=== PATIENT | male | born 1995 | race Hispanic/Latino ===

== ENCOUNTER 2017-03-23 17:20 | Emergency (ER) | payer MEDICAID, OTHER ==
[2017-03-23 17:37] VITALS: BMI 23.6
[2017-03-23 17:38] VITALS: BP 124/72; PULSE 90; RESP 18; TEMP 98.2; O2SAT 100
--- NOTE | 2017-03-23 18:02 | C.PDOC ---
Time Seen by Provider: 03/23/17 17:46 Chief Complaint (Nursing): Back Pain Past Medical History Vital Signs: Last Vital Signs Temp 98.2 F 03/23/17 17:37 Pulse 90 03/23/17 17:37 Resp 18 03/23/17 17:37 BP 124/72 03/23/17 17:37 Pulse Ox 100 03/23/17 17:37 - Medical History PMH: Anxiety, Arthritis, Asthma, Back Problems (Herniated and buldging discs), Fibromyalgia, Chronic Pain (Back and Neck) Denies: Chronic Kidney Disease - [facility] Procedures ESOPHAGOGASTRODUODENOSCOPY [EGD] W/CLOSED BIOPSY (02/11/15) Family History: States: Unknown Family Hx - Social History Hx Tobacco Use: No Hx Alcohol Use: No Hx Substance Use: No - Immunization History Hx Tetanus Toxoid Vaccination: No Hx Influenza Vaccination: No Hx Pneumococcal Vaccination: No ED Course And Treatment O2 Sat by Pulse Oximetry: 100 Disposition - Disposition Referrals: Diallo Hester MD [Non-Staff] - Disposition: HOME/ ROUTINE Disposition Time: 17:56 Condition: STABLE Additional Instructions: please follow up with your scheduled appointment. please also see specialist. return to er with worsening symptoms or concerns. Prescriptions: Cyclobenzaprine [Cyclobenzaprine HCl] 10 mg PO TID PRN #21 tab PRN Reason: Muscle Spasm Naproxen [Naprosyn] 500 mg PO BID PRN #14 tablet PRN Reason: Pain, Mild (1-3) Instructions: Back Pain (ED), Chronic Back Pain (ED) - Clinical Impression Clinical Impression: Chronic back pain
--- NOTE | 2017-03-23 18:06 | C.PDOC ---
History Of Present Illness 21 yr old male with PMHx of chronic back pain, presents to the ER with complaints of worsening back pain for the past few days. Patient reports he is due for surgery for his chronic back pain. MRI report shows multiple herniated disc in his thoracic spine area and is due to see a surgeon in 3 weeks. Patient states his back pain causes him to feel "hard to breath" butstates "nothing is wrong with his lungs". Prior records shows patient was seen previously for similar symptoms. Patient denies new trauma, chest pain, dysuria, incontinence, weakness or numbness. Time Seen by Provider: 03/23/17 17:46 Chief Complaint (Nursing): Back Pain History Per: Patient History/Exam Limitations: no limitations Onset/Duration Of Symptoms: Persistent Current Symptoms Are (Timing): Still Present Past Medical History Reviewed: Historical Data, Nursing Documentation, Vital Signs Vital Signs: Last Vital Signs Temp 98.2 F 03/23/17 17:37 Pulse 90 03/23/17 17:37 Resp 18 03/23/17 17:37 BP 124/72 03/23/17 17:37 Pulse Ox 100 03/23/17 18:10 - Medical History PMH: Anxiety, Arthritis, Asthma, Back Problems (Herniated and buldging discs), Fibromyalgia, Chronic Pain (Back and Neck) - [facility] Procedures ESOPHAGOGASTRODUODENOSCOPY [EGD] W/CLOSED BIOPSY (02/11/15) Family History: States: No Known Family Hx - Social History Hx Tobacco Use: No Hx Alcohol Use: No Hx Substance Use: No - Immunization History Hx Tetanus Toxoid Vaccination: No Hx Influenza Vaccination: No Hx Pneumococcal Vaccination: No Review Of Systems Except As Marked, All Systems Reviewed And Found Negative. Cardiovascular: Negative for: Chest Pain Genitourinary: Negative for: Dysuria, Incontinence Musculoskeletal: Positive for: Back Pain (Chronic back pain ) Neurological: Negative for: Weakness, Numbness Physical Exam - Physical Exam Appears: Non-toxic, No Acute Distress Skin: Warm, Dry, No Rash Head: Atraumatic, Normacephalic Oral Mucosa: Moist Chest: Symmetrical, No Tenderness Cardiovascular: Rhythm Regular, No Murmur Respiratory: Normal Breath Sounds, No Rales, No Rhonchi, No Stridor, No Wheezing Back: Normal Inspection, No CVA Tenderness Extremity: Normal ROM, No Swelling Neurological/Psych: Oriented x3, Normal Speech, Normal Motor ED Course And Treatment O2 Sat by Pulse Oximetry: 100 Progress Note: [facility] was reviewed which shows multiple tramadol prescription, last refill was 03/01/2017. Medical Decision Making Medical Decision Making: PLAN: * Flexeril PO * Toradol IM pt seen immediatley eloping after physician eval. Disposition - Disposition Referrals: Diallo Hester MD [Non-Staff] - Disposition: ELOPEMENT - ER ONLY Disposition Time: 17:56 Condition: STABLE Additional Instructions: please follow up with your scheduled appointment. please also see specialist. return to er with worsening symptoms or concerns. Prescriptions: Cyclobenzaprine [Cyclobenzaprine HCl] 10 mg PO TID PRN #21 tab PRN Reason: Muscle Spasm Naproxen [Naprosyn] 500 mg PO BID PRN #14 tablet PRN Reason: Pain, Mild (1-3) Instructions: Chronic Back Pain (ED), Back Pain (ED) - Clinical Impression Clinical Impression: Chronic back pain - Scribe Statement The provider has reviewed the documentation as recorded by the Sharonibpradeep Ritchie Provider Attestation: All medical record entries made by the Sharonibe were at my direction and personally dictated by me. I have reviewed the chart and agree that the record accurately reflects my personal performance of the history, physical exam, medical decision making, and the department course for this patient. I have also personally directed, reviewed, and agree with the discharge instructions and disposition.
== END 2017-03-23 17:46 | disposition left against medical advice (07) ==
LOC: C.ER 17:20
DX: G89.29 Other chronic pain (principal); M54.9 Dorsalgia, unspecified

== ENCOUNTER 2017-10-17 00:30 | Emergency (ER) | payer MEDICAID, OTHER ==
[2017-10-17 00:30] VITALS: BMI 23.6
[2017-10-17 00:42] VITALS: BP 154/82; PULSE 100; RESP 18; TEMP 98.2; O2SAT 100
--- NOTE | 2017-10-17 00:53 | C.PDOC ---
History Of Present Illness 22 yo male w/PMhx of migraine come in request refill on Rx: Fioricet. Pt reports , "usually my provider gives me medication every month on . She was away last week". Pt denies headache at present time, denies any other active physical complaints. Ambulate to Ed for evaluation, not in any apparent distress. [facility] review. pt receive on monthly basis Rx: Tramadol 50 mg, last rx was given . Time Seen by Provider: 10/17/17 00:44 Chief Complaint (Nursing): Med Refill History Per: Patient Past Medical History Reviewed: Historical Data, Nursing Documentation, Vital Signs Vital Signs: Last Vital Signs Temp 98.2 F 10/17/17 00:40 Pulse 100 H 10/17/17 00:40 Resp 18 10/17/17 00:40 BP 154/82 H 10/17/17 00:40 Pulse Ox 100 10/17/17 01:18 - Medical History PMH: Anxiety, Arthritis, Asthma, Back Problems (Herniated and buldging discs), Fibromyalgia, Chronic Pain (Back and Neck) Denies: Chronic Kidney Disease - [facility] Procedures ESOPHAGOGASTRODUODENOSCOPY [EGD] W/CLOSED BIOPSY (02/11/15) Family History: States: Unknown Family Hx - Social History Hx Tobacco Use: No Hx Alcohol Use: No Hx Substance Use: No - Immunization History Hx Tetanus Toxoid Vaccination: No Hx Influenza Vaccination: No Hx Pneumococcal Vaccination: No Review Of Systems Except As Marked, All Systems Reviewed And Found Negative. Constitutional: Negative for: Fever, Chills Eyes: Negative for: Vision Change ENT: Negative for: Throat Pain Cardiovascular: Negative for: Chest Pain, Palpitations, Edema, Light Headedness Respiratory: Negative for: Cough, Shortness of Breath, Wheezing Gastrointestinal: Negative for: Nausea, Vomiting, Abdominal Pain, Diarrhea Genitourinary: Negative for: Dysuria, Incontinence Musculoskeletal: Negative for: Neck Pain, Back Pain Skin: Negative for: Rash Neurological: Negative for: Weakness, Numbness, Altered Mental Status, Headache , Dizziness Physical Exam - Physical Exam Appears: Well, Non-toxic, No Acute Distress Skin: Normal Color, Warm, Dry, No Rash Head: Normacephalic Eye(s): bilateral: PERRL Nose: No Flaring Oral Mucosa: Moist, No Drooling Throat: No Mass Neck: Normal ROM, Trachea Midline, Supple Cardiovascular: Rhythm Regular, No Murmur, No JVD Respiratory: No Decreased Breath Sounds, No Accessory Muscle Use, No Stridor, No Wheezing Gastrointestinal/Abdominal: Soft, No Tenderness, No Distention, No Guarding Extremity: Normal ROM, No Deformity, No Swelling Neurological/Psych: Oriented x3, Normal Speech ED Course And Treatment O2 Sat by Pulse Oximetry: 100 Pulse Ox Interpretation: Normal Progress Note: Pt advised and ref. to f/U with PMd, Pain management and neurology for further eavluation and rx refill as need. return if any new changes. Disposition Counseled Patient/Family Regarding: Diagnosis, Need For Followup - Disposition Referrals: Sulma Dumont MD [Primary Care Provider] - Disposition: HOME/ ROUTINE Disposition Time: 00:51 Condition: STABLE Additional Instructions: TAKE MEDICATION PRESCRIBED FOLLOW UP WITH PMD, NEUROLOGY NEED FOR FURTHER EVALUATION AND MEDICAL REFILL. Prescriptions: Acetaminophen/Butalbital/Caf [Fioricet] 1 tab PO TID PRN #10 tab PRN Reason: Headache Instructions: Migraine Headache (ED), Medicine Refill (ED) Forms: [employer] (Kenyan) - Clinical Impression Clinical Impression: Medication refill, Migraine
== END 2017-10-17 01:29 | disposition home or self-care (01) ==
LOC: SUPCPDRO 00:30 → C.ER 00:30
DX: Z76.0 Encounter for issue of repeat prescription (principal); G43.909 Migraine, unspecified, not intractable, without status migrainosus

== ENCOUNTER 2018-02-17 22:01 | Emergency (ER) | payer OTHER ==
[2018-02-17 22:12] VITALS: BMI 25.4
--- NOTE | 2018-02-17 22:18 | C.PDOC ---
History Of Present Illness 22 year old male is brought to the ED by ambulance alongside [facility] escort for psychiatric evaluation. Patient reportedly verbalized suicidal ideation earlier today. Patient has history of psychiatric illness but is not currently on any psychiatric medications. Patient denies homicidal ideation and has no physical complaints at this time. Time Seen by Provider: 02/17/18 22:15 Chief Complaint (Nursing): Psychiatric Evaluation History Per: Patient, EMS History/Exam Limitations: no limitations Onset/Duration Of Symptoms: Hrs Current Symptoms Are (Timing): Still Present Suicide/Self Injury Attempted (Context): None Associated Symptoms: Suicidal Thoughts Involuntary Hold By: None Recent travel outside of the [place]: No Additional History Per: Patient, EMS, Law Enforcement Past Medical History Reviewed: Historical Data, Nursing Documentation, Vital Signs Vital Signs: Last Vital Signs Temp 97.9 F 02/17/18 22:13 Pulse 89 02/17/18 22:13 Resp 18 02/17/18 22:13 BP 112/74 02/17/18 22:13 Pulse Ox 99 02/18/18 00:15 - Medical History PMH: Anxiety, Arthritis, Asthma, Back Problems (Herniated and buldging discs), Fibromyalgia, Chronic Pain (Back and Neck) Denies: Chronic Kidney Disease Surgical History: No Surg Hx - [facility] Procedures ESOPHAGOGASTRODUODENOSCOPY [EGD] W/CLOSED BIOPSY (02/11/15) Family History: States: Unknown Family Hx - Social History Hx Tobacco Use: No Hx Alcohol Use: No Hx Substance Use: No - Immunization History Hx Tetanus Toxoid Vaccination: No Hx Influenza Vaccination: No Hx Pneumococcal Vaccination: No Review Of Systems Psych: Positive for: Suicidal ideation Physical Exam - Physical Exam Appears: Non-toxic, No Acute Distress, Other (disheveled, thin ) Skin: Normal Color, Warm, Dry Head: Atraumatic, Normacephalic Eye(s): bilateral: Normal Inspection Oral Mucosa: Moist Neck: Supple Chest: Symmetrical, No Deformity, No Tenderness Cardiovascular: Rhythm Regular, No Murmur Respiratory: Normal Breath Sounds, No Rales, No Rhonchi, No Wheezing Extremity: Normal ROM, Capillary Refill (less than 2 seconds ) Neurological/Psych: Oriented x3, Normal Speech, Normal Cognition ED Course And Treatment - Laboratory Results Result Diagrams: 02/17/18 22:44 02/17/18 22:44 Lab Interpretation: Abnormal (tox + abdelrahman (fioricet) narc (tramadol)) O2 Sat by Pulse Oximetry: 99 (on RA) Pulse Ox Interpretation: Normal Progress Note: Bloodwork and UA ordered and reviewed. Patient placed on 1:1 observation. Reevaluation Time: 00:42 Reassessment Condition: Unchanged - Physician Consult Information Outcome Of Conversation: d/w Crisis, ok to d/c home with opt flu. Medical Decision Making Medical Decision Making: fioricet and Tramadol abuse Depression Disposition Doctor Will See Patient In The: Office Counseled Patient/Family Regarding: Studies Performed, Diagnosis - Disposition Disposition: HOME/ ROUTINE Disposition Time: 00:43 Condition: GOOD Forms: [employer] (Urdu) - Clinical Impression Clinical Impression: Depression, Opiate abuse, continuous - Scribe Statement The provider has reviewed the documentation as recorded by the Scribe (Arleth Sahni) Provider Attestation: All medical record entries made by the Scribe were at my direction and personally dictated by me. I have reviewed the chart and agree that the record accurately reflects my personal performance of the history, physical exam, medical decision making, and the department course for this patient. I have also personally directed, reviewed, and agree with the discharge instructions and disposition.
[2018-02-17 22:19] VITALS: RESP 18
[2018-02-17 22:53] LABS: BASO # 0.2 K/uL (0.0-0.2); BASO % 2.8 % (0.0-2.0); EOS # 0.5 K/uL (0.0-0.7); EOS % 9.5 % (0.0-4.0); HEMOGLOBIN 14.7 g/dL (12.0-18.0); LYMPH # 1.8 K/uL (1.0-4.3); LYMPH % 32.5 % (20.0-40.0); MEAN CELL VOLUME 89.5 fL (80.0-94.0); MEAN CORPUSCULAR HEMOGLOBIN 30.8 pg (27.0-31.0); MEAN CORPUSCULAR HGB CONC 34.4 g/dL (33.0-37.0); MEAN PLATELET VOLUME 10.7 fL (7.2-11.7); MONO # 0.5 K/uL (0.0-0.8); MONO % 9.3 % (0.0-10.0); NEUT # 2.6 K/uL (1.8-7.0); NEUT % 45.9 % (50.0-75.0); RBC 4.78 Mil/uL (4.40-5.90); RED CELL DISTRIBUTION WIDTH 13.2 % (11.5-14.5); WHITE BLOOD COUNT 5.6 K/uL (4.8-10.8)
[2018-02-17 23:00] LABS: URINE BACTERIA RARE (<OCC); URINE BILIRUBIN NEGATIVE (NEGATIVE); URINE BLOOD NEGATIVE (NEGATIVE); URINE CLARITY Clear (Clear); URINE COLOR Yellow (YELLOW); URINE GLUCOSE (UA) NORMAL (Normal); URINE LEUKOCYTE ESTERASE NEG Leu/uL (Negative); URINE PROTEIN NEGATIVE (NEGATIVE); URINE UROBILINOGEN NORMAL mg/dL (0.2-1.0)
[2018-02-17 23:11] LABS: ALB/GLOB RATIO 1.6 (1.0-2.1); ALBUMIN 4.8 g/dL (3.5-5.0); ALT/SGPT 22 U/L (21-72); AST/SGOT 26 U/L (17-59); BLOOD UREA NITROGEN 13 mg/dL (9-20); CALCIUM 9.6 mg/dl (8.6-10.4); GFR AFRICAN-AMERICAN > 60; GFR NON-AFRICAN AMERICAN > 60
[2018-02-17 23:15] LABS: BENZODIAZEPINES, UR NEGATIVE (NEGATIVE); PHENCYCLIDINE, UR NEGATIVE (NEGATIVE)
[2018-02-17 23:19] LABS: BARBITURATES, UR POSITIVE (NEGATIVE); OPIATES, UR POSITIVE (NEGATIVE)
[2018-02-18 00:59] VITALS: BP 96/60; PULSE 76; TEMP 98.1; O2SAT 98
== END 2018-02-18 01:10 | disposition home or self-care (01) ==
LOC: C.ER 22:01
DX: F32.9 Major depressive disorder, single episode, unspecified (principal); F11.10 Opioid abuse, uncomplicated; M79.7 Fibromyalgia

== ENCOUNTER 2018-08-21 11:40 | Emergency (ER) | payer MEDICAID, OTHER ==
[2018-08-21 11:41] VITALS: BMI 25.4
[2018-08-21 11:52] VITALS: BP 166/79; PULSE 112; RESP 17; TEMP 98.4; O2SAT 100
--- NOTE | 2018-08-21 12:04 | C.PDOC ---
History Of Present Illness 23 y/o male presents to the ED requesting refill for Fioricet. Patient states he was taking Fioricet four times per day for headaches. He denies any active physical complaints other than mild headache, consistent with prior episodes. He denies any nausea, vomiting, photophobia, visual loss, dizziness, or other complaints. Time Seen by Provider: 08/21/18 11:54 Chief Complaint (Nursing): Med Refill History Per: Patient History/Exam Limitations: no limitations Onset/Duration Of Symptoms: Days Current Symptoms Are (Timing): Still Present Past Medical History Reviewed: Historical Data, Nursing Documentation, Vital Signs Vital Signs: Last Vital Signs Temp 98.4 F 08/21/18 11:47 Pulse 112 H 08/21/18 11:47 Resp 17 08/21/18 11:47 BP 166/79 H 08/21/18 11:47 Pulse Ox 100 08/21/18 11:47 - Medical History PMH: Anxiety, Arthritis, Asthma, Back Problems (Herniated and buldging discs), Fibromyalgia, Chronic Pain (Back and Neck) Denies: Chronic Kidney Disease - [facility] Procedures ESOPHAGOGASTRODUODENOSCOPY [EGD] W/CLOSED BIOPSY (02/11/15) Family History: States: Unknown Family Hx - Social History Hx Tobacco Use: No Hx Alcohol Use: No Hx Substance Use: No - Immunization History Hx Tetanus Toxoid Vaccination: No Hx Influenza Vaccination: No Hx Pneumococcal Vaccination: No Review Of Systems Constitutional: Negative for: Fever, Chills Eyes: Negative for: Vision Change Cardiovascular: Negative for: Chest Pain Respiratory: Negative for: Shortness of Breath Gastrointestinal: Negative for: Nausea, Vomiting Neurological: Positive for: Headache. Negative for: Weakness, Numbness, Dizziness Physical Exam - Physical Exam Appears: Well, Non-toxic, No Acute Distress Skin: Warm, Dry Head: Atraumatic, Normacephalic Eye(s): bilateral: Normal Inspection, PERRL, EOMI Nose: Normal, No Discharge Oral Mucosa: Moist Neck: Normal ROM, No Midline Cervical Tenderness, No Paracervical Tenderness, Supple Chest: Symmetrical Respiratory: No Accessory Muscle Use, Other (no respiratory distress) Extremity: Bilateral: Atraumatic, Normal Color And Temperature Neurological/Psych: Oriented x3, Normal Speech, Normal Cranial Nerves, Other (No focal deficits) Gait: Steady ED Course And Treatment O2 Sat by Pulse Oximetry: 100 (RA) Pulse Ox Interpretation: Normal Progress Note: Patient advised that med refills cannot be routinely provided from the ED, and he needs to follow up with PMD or neurologist for further management. Will d/c home with rx for Fioricet TID, 12 tabs. Disposition - Disposition Disposition: HOME/ ROUTINE Disposition Time: 12:08 Condition: STABLE Additional Instructions: Follow up withb your PMD within 1-2 days. Return to ED if feel worse. 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 - Scribe Statement The provider has reviewed the documentation as recorded by the Scribpradeep Cat All medical record entries made by the Scribe were at my direction and personally dictated by me. I have reviewed the chart and agree that the record accurately reflects my personal performance of the history, physical exam, medical decision making, and the department course for this patient. I have also personally directed, reviewed, and agree with the discharge instructions and disposition.
== END 2018-08-21 12:15 | disposition home or self-care (01) ==
LOC: C.ER 11:40
DX: Z76.0 Encounter for issue of repeat prescription (principal)

== ENCOUNTER 2018-11-13 21:11 | Emergency (ER) | payer SELFPAY ==
[2018-11-13 21:12] VITALS: BMI 25.4
--- NOTE | 2018-11-13 21:26 | C.PDOC ---
History Of Present Illness 23 year old male presents to the ED for evaluation of depression. Patient reports that he has been feeling depressed lately and today had thoughts of jumping in front of a speeding car. Patient denies HI, hallucinations, injury, fall, trauma. Time Seen by Provider: 11/13/18 21:26 Chief Complaint (Nursing): Psychiatric Evaluation History Per: Patient History/Exam Limitations: no limitations Onset/Duration Of Symptoms: Days Current Symptoms Are (Timing): Still Present Suicide/Self Injury Attempted (Context): None Associated Symptoms: Depression, Suicidal Thoughts, Suicidal Plan Recent travel outside of the [place]: No Additional History Per: Patient Past Medical History Reviewed: Historical Data, Nursing Documentation, Vital Signs Vital Signs: Last Vital Signs Temp 97.8 F 11/13/18 21:15 Pulse 91 H 11/13/18 21:15 Resp 16 11/13/18 21:15 BP 101/60 11/13/18 21:15 Pulse Ox 98 11/13/18 21:15 - Medical History PMH: Anxiety, Arthritis, Asthma, Back Problems (Herniated and buldging discs), Depression, Fibromyalgia, Chronic Pain (Back and Neck) Denies: Chronic Kidney Disease Surgical History: No Surg Hx - [facility] Procedures ESOPHAGOGASTRODUODENOSCOPY [EGD] W/CLOSED BIOPSY (02/11/15) Family History: States: Unknown Family Hx - Social History Hx Tobacco Use: No Hx Alcohol Use: No Hx Substance Use: No - Immunization History Hx Tetanus Toxoid Vaccination: No Hx Influenza Vaccination: No Hx Pneumococcal Vaccination: No Review Of Systems Constitutional: Negative for: Fever, Chills Cardiovascular: Negative for: Chest Pain Respiratory: Negative for: Shortness of Breath Gastrointestinal: Negative for: Nausea, Vomiting, Abdominal Pain Skin: Negative for: Rash Psych: Positive for: Depression, Suicidal ideation Physical Exam - Physical Exam Appears: Non-toxic, No Acute Distress Skin: Warm, Dry Head: Normacephalic Eye(s): bilateral: Normal Inspection Neck: Supple Chest: Symmetrical Cardiovascular: Rhythm Regular Respiratory: No Rales, No Rhonchi, No Wheezing Gastrointestinal/Abdominal: Soft, No Tenderness, No Guarding, No Rebound Extremity: Bilateral: Atraumatic, Normal Color And Temperature, Normal ROM Neurological/Psych: Oriented x3, Normal Speech, Normal Cognition Gait: Steady ED Course And Treatment - Laboratory Results Result Diagrams: 11/13/18 21:37 11/13/18 21:37 O2 Sat by Pulse Oximetry: 98 (ON RA) Pulse Ox Interpretation: Normal Progress Note: Plan: - Labs. - UA. - Crisis. Pt was cleared for discharge by dr Shipman. Pt to follow up with [facility] Disposition Counseled Patient/Family Regarding: Studies Performed, Diagnosis, Need For Foll owup - Disposition Disposition: HOME/ ROUTINE Disposition Time: 21:26 Condition: FAIR Additional Instructions: Please follow up with [facility] Instructions: Depression, Adult (DC) Forms: [employer] (Khmer) - Clinical Impression Clinical Impression: Major depressive disorder, recurrent - Scribe Statement The provider has reviewed the documentation as recorded by the Scribe Ty Key All medical record entries made by the Scribe were at my direction and personally dictated by me. I have reviewed the chart and agree that the record accurately reflects my personal performance of the history, physical exam, medical decision making, and the department course for this patient. I have also personally directed, reviewed, and agree with the discharge instructions and disposition.
[2018-11-13 21:44] LABS: BASO # 0.1 K/uL (0.0-0.2); EOS # 0.5 K/uL (0.0-0.7); EOS % 6.8 % (0.0-4.0); HEMOGLOBIN 13.8 g/dL (12.0-18.0); LYMPH # 1.9 K/uL (1.0-4.3); LYMPH % 28.8 % (20.0-40.0); MEAN CELL VOLUME 90.1 fL (80.0-94.0); MEAN CORPUSCULAR HEMOGLOBIN 29.9 pg (27.0-31.0); MEAN CORPUSCULAR HGB CONC 33.2 g/dL (33.0-37.0); MEAN PLATELET VOLUME 10.8 fL (7.2-11.7); MONO # 0.4 K/uL (0.0-0.8); NEUT # 3.8 K/uL (1.8-7.0); NEUT % 57.4 % (50.0-75.0); NRBC % 0.1 % (0.0-2.0); RBC 4.62 Mil/uL (4.40-5.90); RED CELL DISTRIBUTION WIDTH 13.2 % (11.5-14.5); WHITE BLOOD COUNT 6.6 K/uL (4.8-10.8)
[2018-11-13 21:53] LABS: URINE BILIRUBIN NEGATIVE (NEGATIVE); URINE BLOOD NEGATIVE (NEGATIVE); URINE CLARITY Clear (Clear); URINE COLOR Yellow (YELLOW); URINE GLUCOSE (UA) NORMAL (Normal); URINE LEUKOCYTE ESTERASE NEG Leu/uL (Negative); URINE PROTEIN NEGATIVE (NEGATIVE); URINE UROBILINOGEN NORMAL mg/dL (0.2-1.0)
[2018-11-13 21:57] LABS: ALB/GLOB RATIO 1.9 (1.0-2.1); ALBUMIN 4.5 g/dL (3.5-5.0); ALT/SGPT 23 U/L (21-72); AST/SGOT 23 U/L (17-59); BLOOD UREA NITROGEN 9 mg/dL (9-20); CALCIUM 8.9 mg/dl (8.6-10.4); GFR NON-AFRICAN AMERICAN > 60
[2018-11-13 22:01] LABS: BARBITURATES, UR POSITIVE (NEGATIVE); BENZODIAZEPINES, UR NEGATIVE (NEGATIVE); OPIATES, UR NEGATIVE (NEGATIVE); PHENCYCLIDINE, UR NEGATIVE (NEGATIVE)
[2018-11-14 01:32] VITALS: RESP 18
[2018-11-14 03:51] VITALS: BP 108/72; PULSE 61; TEMP 98.3
[2018-11-14 04:15] VITALS: O2SAT 98
== END 2018-11-14 04:40 | disposition home or self-care (01) ==
LOC: C.ER 21:11
DX: F32.9 Major depressive disorder, single episode, unspecified (principal)
CPT/HCPCS: 80053; 81001; 83735; 84100; 85025; 99285; G0480

== ENCOUNTER 2018-12-01 23:49 | Emergency (ER) | payer MEDICAID ==
[2018-12-01 23:51] VITALS: BMI 25.4
[2018-12-02 00:21] VITALS: BP 120/77; PULSE 104; RESP 20; TEMP 98.7; O2SAT 96
--- NOTE | 2018-12-02 01:01 | C.PDOC ---
History Of Present Illness this patient request medication refill of fiorcet. he states he has chronic headaches and he ran out yesterday. he has a primary that normally sees him but he is not scheduled until january. he denies having a severe headache at this time. Time Seen by Provider: 12/02/18 00:57 Chief Complaint (Nursing): Headache History Per: Patient History/Exam Limitations: no limitations Current Symptoms Are (Timing): Gone Severity: None Past Medical History Vital Signs: Last Vital Signs Temp 98.7 F 12/02/18 00:17 Pulse 104 H 12/02/18 00:17 Resp 20 12/02/18 00:17 BP 120/77 12/02/18 00:17 Pulse Ox 96 12/02/18 00:17 - Medical History PMH: Anxiety, Arthritis, Asthma, Back Problems (Herniated and buldging discs), Depression, Fibromyalgia, Migraine, Chronic Pain (Back and Neck) Denies: Diabetes, Hepatitis, HIV, HTN, Chronic Kidney Disease, Seizures, Sex ually Transmitted Disease - [facility] Procedures ESOPHAGOGASTRODUODENOSCOPY [EGD] W/CLOSED BIOPSY (02/11/15) Family History: States: Unknown Family Hx - Social History Hx Tobacco Use: No Hx Alcohol Use: No Hx Substance Use: No - Immunization History Hx Tetanus Toxoid Vaccination: No Hx Influenza Vaccination: No Hx Pneumococcal Vaccination: No Review Of Systems Constitutional: Negative for: Fever, Chills, Weakness Gastrointestinal: Negative for: Nausea, Vomiting Neurological: Negative for: Weakness, Numbness, Confusion, Seizures Physical Exam - Physical Exam Appears: Well, Non-toxic Skin: Normal Color, Warm Head: Atraumatic, Normacephalic Eye(s): bilateral: Normal Inspection, PERRL, EOMI Neck: Supple Respiratory: No Accessory Muscle Use Extremity: Normal ROM Extremity: Bilateral: Atraumatic Neurological/Psych: Oriented x3, Normal Speech, Normal Cognition, Normal Cranial Nerves ED Course And Treatment O2 Sat by Pulse Oximetry: 96 Disposition Counseled Patient/Family Regarding: Diagnosis, Need For Followup, Rx Given - Disposition Disposition: HOME/ ROUTINE Disposition Time: : Condition: STABLE Prescriptions: Acetaminophen/Butalbital/Caf [Fioricet] 1 tab PO TID #30 tab Instructions: Where to Get Help Paying for Your Prescriptions Forms: [employer] (Yakut), General Discharge Instructions - Clinical Impression Clinical Impression: Medication refill
== END 2018-12-02 01:16 | disposition home or self-care (01) ==
LOC: C.ER 23:49
DX: Z76.0 Encounter for issue of repeat prescription (principal)

== ENCOUNTER 2018-12-05 19:03 | Emergency (ER) | payer MEDICAID ==
[2018-12-05 19:03] VITALS: BMI 25.4
[2018-12-05 19:21] VITALS: BP 124/82; PULSE 113; RESP 20; TEMP 98.2; O2SAT 98
--- NOTE | 2018-12-05 20:21 | C.PDOC ---
History Of Present Illness 23 y/o male with a PMHx of chronic back pain, scoliosis, and pinched nerve presents to the ED for evaluation of worsening back pain. Patient states he lost his insurance 2 months ago and is pending re-instatement on Tuesday. He has plans to see PMD on Tuesday but is requesting a refill of his Tramadol. Pain is described as sharp, rated 9/10, unchanged from prior episodes of chronic back pain. He otherwise denies any trauma or injury, weakness, paresthesias, fevers, chills, nausea, vomiting, or urinary symptoms. Time Seen by Provider: 12/05/18 20:15 Chief Complaint (Nursing): Med Refill History Per: Patient History/Exam Limitations: no limitations Onset/Duration Of Symptoms: Days Current Symptoms Are (Timing): Still Present Past Medical History Reviewed: Historical Data, Nursing Documentation, Vital Signs Vital Signs: Last Vital Signs Temp 98.2 F 12/05/18 19:20 Pulse 113 H 12/05/18 19:20 Resp 20 12/05/18 19:20 BP 124/82 12/05/18 19:20 Pulse Ox 98 12/05/18 19:20 - Medical History PMH: Anxiety, Arthritis, Asthma, Back Problems (Herniated and buldging discs), Depression, Fibromyalgia, Migraine, Chronic Pain (Back and Neck) Denies: Diabetes, Hepatitis, HIV, HTN, Chronic Kidney Disease, Seizures, Sexually Transmitted Disease - [facility] Procedures ESOPHAGOGASTRODUODENOSCOPY [EGD] W/CLOSED BIOPSY (02/11/15) Family History: States: Unknown Family Hx - Social History Hx Tobacco Use: No Hx Alcohol Use: No Hx Substance Use: No - Immunization History Hx Tetanus Toxoid Vaccination: No Hx Influenza Vaccination: No Hx Pneumococcal Vaccination: No Review Of Systems Constitutional: Negative for: Fever, Chills Cardiovascular: Negative for: Chest Pain Respiratory: Negative for: Shortness of Breath Gastrointestinal: Negative for: Nausea, Vomiting, Abdominal Pain Genitourinary: Negative for: Dysuria, Incontinence, Hematuria Musculoskeletal: Positive for: Back Pain Neurological: Negative for: Weakness, Numbness, Incoordination Physical Exam - Physical Exam Appears: Non-toxic, No Acute Distress Skin: Warm, Dry Head: Atraumatic, Normacephalic Eye(s): bilateral: Normal Inspection, PERRL, EOMI Neck: Normal ROM Chest: Symmetrical Cardiovascular: Rhythm Regular Respiratory: Normal Breath Sounds, No Accessory Muscle Use Back: Vertebral Tenderness (cervical down to lumbar spine) Extremity: Bilateral: Atraumatic, Normal ROM (x 4) Pulses: Left Dorsalis Pedis: Normal, Right Dorsalis Pedis: Normal Neurological/Psych: Oriented x3, Normal Speech Gait: Steady ED Course And Treatment O2 Sat by Pulse Oximetry: 98 (RA) Pulse Ox Interpretation: Normal Medical Decision Making Medical Decision Making: Impression: Chronic back pain Plan: - 600 mg PO Motrin Patient noted to be resting comfortably in no acute distress during ED OBS. Plan is to discharge pt home with rx for motrin 600mg. Upon discharge, patient had already left the ED. Patient left without receiving discharge paperwork and prescription. Disposition Counseled Patient/Family Regarding: Diagnosis, Need For Followup, Rx Given - Disposition Referrals: Tyrone Villa MD [Medical Doctor] - Disposition: HOME/ ROUTINE Disposition Time: 21:08 Condition: STABLE Additional Instructions: follow up with Dr. Mari for pain management return to ED if symptoms worsen Prescriptions: Ibuprofen [Motrin] 600 mg PO Q8 #30 tab Instructions: Chronic Pain (DC) Forms: [employer] (Swazi) - Clinical Impression Clinical Impression: Chronic pain, Back pain - PA / STOCK DRIER TENDER / Resident Statement MD/DO has reviewed & agrees with the documentation as recorded. - Scribe Statement The provider has reviewed the documentation as recorded by the Scribe Glendy Cat All medical record entries made by the Scribe were at my direction and personally dictated by me. I have reviewed the chart and agree that the record accurately reflects my personal performance of the history, physical exam, medical decision making, and the department course for this patient. I have also personally directed, reviewed, and agree with the discharge instructions and disposition.
== END 2018-12-05 21:20 | disposition home or self-care (01) ==
LOC: C.ER 19:03
DX: M54.9 Dorsalgia, unspecified (principal); G89.29 Other chronic pain

== ENCOUNTER 2018-12-11 22:36 | Emergency (ER) | payer SELFPAY ==
[2018-12-11 22:36] VITALS: BMI 25.4
[2018-12-11 22:49] VITALS: BP 143/78; PULSE 140; RESP 18; TEMP 98.4; O2SAT 99
--- NOTE | 2018-12-11 23:26 | C.PDOC ---
History Of Present Illness 23 year old male with Hx of chronic migraine, usually takes fioricet, evaluated in the ER before for migraine, presents requesting a refill of his fioricet. Patient states his insurance lapsed but he has an appointment with Dr. Vilal for pain management and would like a refill until then. No other complaints at this time. Time Seen by Provider: 12/11/18 22:47 Chief Complaint (Nursing): Med Refill History Per: Patient History/Exam Limitations: no limitations Onset/Duration Of Symptoms: Hrs Recent travel outside of the [place]: No Past Medical History Reviewed: Historical Data, Nursing Documentation, Vital Signs Vital Signs: Last Vital Signs Temp 98.4 F 12/11/18 22:45 Pulse 140 H 12/11/18 22:45 Resp 18 12/11/18 22:45 BP 143/78 12/11/18 22:45 Pulse Ox 99 12/11/18 22:45 - Medical History PMH: Anxiety, Arthritis, Asthma, Back Problems (Herniated and buldging discs), Depression, Fibromyalgia, Migraine, Chronic Pain (Back and Neck) Denies: Diabetes, Hepatitis, HIV, HTN, Chronic Kidney Disease, Seizures, Se xually Transmitted Disease - [facility] Procedures ESOPHAGOGASTRODUODENOSCOPY [EGD] W/CLOSED BIOPSY (02/11/15) Family History: States: Unknown Family Hx - Social History Hx Tobacco Use: No Hx Alcohol Use: No Hx Substance Use: No - Immunization History Hx Tetanus Toxoid Vaccination: No Hx Influenza Vaccination: No Hx Pneumococcal Vaccination: No Review Of Systems Constitutional: Negative for: Fever, Chills Cardiovascular: Negative for: Chest Pain, Palpitations Respiratory: Negative for: Cough, Shortness of Breath Gastrointestinal: Negative for: Nausea, Vomiting Neurological: Negative for: Weakness, Numbness Physical Exam - Physical Exam Appears: Well, Non-toxic, No Acute Distress Skin: Normal Color, Warm, No Rash Head: Atraumatic, Normacephalic Oral Mucosa: Moist Neck: Normal ROM, Supple Chest: Symmetrical Respiratory: No Accessory Muscle Use, Other (Normal inspiratory effort) Gastrointestinal/Abdominal: Soft, No Distention Neurological/Psych: Oriented x3, Normal Speech, Normal Cranial Nerves (Grossly intact) Gait: Steady ED Course And Treatment O2 Sat by Pulse Oximetry: 99 (Room air) Pulse Ox Interpretation: Normal Disposition Counseled Patient/Family Regarding: Diagnosis, Need For Followup, Rx Given - Disposition Disposition: HOME/ ROUTINE Disposition Time: 23:21 Condition: STABLE Prescriptions: Acetaminophen/Butalbital/Caf [Fioricet] 1 tab PO TID #21 tab Forms: [facility] (Norwegian), General Discharge Instructions - Clinical Impression Clinical Impression: Medication refill - PA / CEMENT SACK BREAKER / Resident Statement MD/DO has reviewed & agrees with the documentation as recorded. - Scribe Statement The provider has reviewed the documentation as recorded by the Scribpradeep Teixeira All medical record entries made by the Sharonibpradeep were at my direction and persona lly dictated by me. I have reviewed the chart and agree that the record accurately reflects my personal performance of the history, physical exam, medical decision making, and the department course for this patient. I have also personally directed, reviewed, and agree with the discharge instructions and disposition.
== END 2018-12-11 23:30 | disposition home or self-care (01) ==
LOC: C.ER 22:36
DX: Z76.0 Encounter for issue of repeat prescription (principal); M79.7 Fibromyalgia; F32.9 Major depressive disorder, single episode, unspecified

== ENCOUNTER 2018-12-29 14:45 | Emergency (ER) | payer MEDICAID ==
[2018-12-29 14:45] VITALS: BMI 25.4
[2018-12-29 14:51] VITALS: BP 117/77; PULSE 83; RESP 18; TEMP 98.1; O2SAT 100
--- NOTE | 2018-12-29 15:22 | C.PDOC ---
History Of Present Illness 23 year old male presents to ED requesting fiorcet refill. Patient has no physical complaints. Time Seen by Provider: 12/29/18 14:52 Chief Complaint (Nursing): Med Refill History Per: Patient History/Exam Limitations: no limitations Current Symptoms Are (Timing): Gone Pain Scale Rating Of: 0 Recent travel outside of the [place]: No Past Medical History Reviewed: Historical Data, Nursing Documentation, Vital Signs Vital Signs: Last Vital Signs Temp 98.1 F 12/29/18 14:49 Pulse 83 12/29/18 14:49 Resp 18 12/29/18 14:49 BP 117/77 12/29/18 14:49 Pulse Ox 100 12/29/18 14:49 - Medical History PMH: Anxiety, Arthritis, Asthma, Back Problems (Herniated and buldging discs), Depression, Fibromyalgia, Migraine, Chronic Pain (Back and Neck) Denies: Diabetes, Hepatitis, HIV, HTN, Chronic Kidney Disease, Seizures, Sexually Transmitted Disease Surgical History: No Surg Hx - [facility] Procedures ESOPHAGOGASTRODUODENOSCOPY [EGD] W/CLOSED BIOPSY (02/11/15) Family History: States: Unknown Family Hx - Social History Hx Tobacco Use: No Hx Alcohol Use: No Hx Substance Use: No - Immunization History Hx Tetanus Toxoid Vaccination: No Hx Influenza Vaccination: No Hx Pneumococcal Vaccination: No Review Of Systems Except As Marked, All Systems Reviewed And Found Negative. Constitutional: Negative for: Fever, Chills, Weakness Cardiovascular: Negative for: Chest Pain Respiratory: Negative for: Cough, Shortness of Breath Gastrointestinal: Negative for: Nausea, Vomiting, Abdominal Pain Neurological: Negative for: Weakness, Numbness, Dizziness Physical Exam - Physical Exam Appears: Well, Non-toxic, No Acute Distress Skin: Normal Color, Warm, Dry, No Rash Head: Atraumatic, Normacephalic Eye(s): bilateral: Normal Inspection Oral Mucosa: Moist Throat: No Erythema, No Exudate Neck: Normal ROM, Supple Chest: Symmetrical, No Deformity Cardiovascular: Rhythm Regular, No Friction Rub, No Murmur Respiratory: No Accessory Muscle Use, No Rales, No Rhonchi, No Wheezing Gastrointestinal/Abdominal: Soft, No Tenderness Back: Normal Inspection, No CVA Tenderness Extremity: Normal ROM, No Swelling Neurological/Psych: Oriented x3, Normal Speech, Normal Cognition, Normal Motor Gait: Steady ED Course And Treatment O2 Sat by Pulse Oximetry: 100 (in RA) Pulse Ox Interpretation: Normal Medical Decision Making Medical Decision Making: Plan: Patient given prescription for fiorcet. Patient discharged home. Disposition - Disposition Referrals: Cb Batista MD [Staff Provider] - Tyrone Villa MD [Medical Doctor] - Disposition: HOME/ ROUTINE Disposition Time: 15:20 Condition: GOOD Additional Instructions: Follow up with the medical doctor within 1-2 days. Return if worsened. Prescriptions: Acetaminophen/Butalbital/Caf [Fioricet] 1 tab PO TID PRN #20 tab PRN Reason: Headache Instructions: Headache, Adult Forms: [employer] (Albanian) - Clinical Impression Clinical Impression: Medication refill - PA / ENGINEER FIRST ASSISTANT / Resident Statement MD/DO has reviewed & agrees with the documentation as recorded. (Eunice Baltazar) - Scribe Statement The provider has reviewed the documentation as recorded by the Scribe (Eunice Baltazar) All medical record entries made by the Scribe were at my direction and personally dictated by me. I have reviewed the chart and agree that the record accurately reflects my personal performance of the history, physical exam, medical decision making, and the department course for this patient. I have also personally directed, reviewed, and agree with the discharge instructions and disposition.
== END 2018-12-29 15:31 | disposition home or self-care (01) ==
LOC: C.ER 14:45
DX: Z76.0 Encounter for issue of repeat prescription (principal)

== ENCOUNTER 2019-01-10 02:19 | Emergency (ER) | payer MEDICAID, OTHER ==
[2019-01-10 02:19] VITALS: BMI 25.4
[2019-01-10 02:29] VITALS: BP 149/77; PULSE 104; RESP 16; TEMP 98.6; O2SAT 98
--- NOTE | 2019-01-10 02:39 | C.PDOC ---
Time Seen by Provider: 01/10/19 02:35 Chief Complaint (Nursing): Med Refill Past Medical History Vital Signs: Last Vital Signs Temp 98.6 F 01/10/19 02:26 Pulse 104 H 01/10/19 02:26 Resp 16 01/10/19 02:26 BP 149/77 01/10/19 02:26 Pulse Ox 98 01/10/19 02:26 Primary Care Provider: Sulma Dumont - Medical History PMH: Anxiety, Arthritis, Asthma, Back Problems (Herniated and buldging discs), Depression, Fibromyalgia, Migraine, Chronic Pain (Back and Neck) Denies: Diabetes, Hepatitis, HIV, HTN, Chronic Kidney Disease, Seizures, Sexually Transmitted Disease - [facility] Procedures ESOPHAGOGASTRODUODENOSCOPY [EGD] W/CLOSED BIOPSY (02/11/15) Family History: States: Unknown Family Hx - Social History Hx Tobacco Use: No Hx Alcohol Use: No Hx Substance Use: No - Immunization History Hx Tetanus Toxoid Vaccination: No Hx Influenza Vaccination: No Hx Pneumococcal Vaccination: No ED Course And Treatment O2 Sat by Pulse Oximetry: 98 Progress Note: NO REFILL given Disposition Counseled Patient/Family Regarding: Diagnosis - Disposition Referrals: Sulma Dumont MD [Medical Doctor] - [facility] [Outside] Disposition: HOME/ ROUTINE Disposition Time: 02:37 Condition: STABLE Forms: [facility] (Czech) - POA Present On Arrival: None - Clinical Impression Clinical Impression: Medication refill
== END 2019-01-10 03:06 | disposition home or self-care (01) ==
LOC: C.ER 02:19
DX: Z76.0 Encounter for issue of repeat prescription (principal)

== ENCOUNTER 2019-01-21 19:22 | Emergency (ER) | payer OTHER ==
[2019-01-21 19:23] VITALS: BMI 25.4
--- NOTE | 2019-01-21 19:44 | C.PDOC ---
History Of Present Illness patient presents requesting medication refill of motrin for headaches. he states he usually takes fiorocet but now only takes motrin. he states he just got his insurance reinstated. he denies any complaint at this time. Time Seen by Provider: 01/21/19 19:36 Chief Complaint (Nursing): Med Refill History Per: Patient History/Exam Limitations: no limitations Onset/Duration Of Symptoms: Persistent Current Symptoms Are (Timing): Still Present Past Medical History Vital Signs: Last Vital Signs Temp 98.4 F 01/21/19 19:35 Pulse 86 01/21/19 19:35 Resp 18 01/21/19 19:35 BP 132/77 01/21/19 19:35 Pulse Ox 98 01/21/19 19:35 Primary Care Provider: FAMILY PROVIDER,NO - Medical History PMH: Anxiety, Arthritis, Asthma, Back Problems (Herniated and buldging discs), Depression, Fibromyalgia, Migraine, Chronic Pain (Back and Neck) Denies: Diabetes, Hepatitis, HIV, HTN, Chronic Kidney Disease, Seizures, Sexually Transmitted Disease - [facility] Procedures ESOPHAGOGASTRODUODENOSCOPY [EGD] W/CLOSED BIOPSY (02/11/15) Family History: States: Unknown Family Hx - Social History Hx Tobacco Use: No Hx Alcohol Use: No Hx Substance Use: No - Immunization History Hx Tetanus Toxoid Vaccination: No Hx Influenza Vaccination: No Hx Pneumococcal Vaccination: No Review Of Systems Except As Marked, All Systems Reviewed And Found Negative. Physical Exam - Physical Exam Appears: Well, Non-toxic Skin: Normal Color, Warm Head: Atraumatic, Normacephalic Eye(s): bilateral: Normal Inspection, EOMI Neck: Normal ROM Chest: Symmetrical Respiratory: No Accessory Muscle Use Back: Other (upright steady gait) Extremity: Normal ROM Neurological/Psych: Oriented x3 ED Course And Treatment O2 Sat by Pulse Oximetry: 98 Disposition Counseled Patient/Family Regarding: Diagnosis, Need For Followup - Disposition Disposition: HOME/ ROUTINE Disposition Time: 19:43 Condition: STABLE Prescriptions: Ibuprofen [Motrin Tab] 600 mg PO TID #60 tab Forms: [employer] [facility] (Faroese), General Discharge Instructions - Clinical Impression Clinical Impression: Medication refill
[2019-01-21 19:46] VITALS: BP 132/77; PULSE 86; RESP 18; TEMP 98.4; O2SAT 98
== END 2019-01-21 19:57 | disposition home or self-care (01) ==
LOC: C.ER 19:22
DX: Z76.0 Encounter for issue of repeat prescription (principal)

== ENCOUNTER 2019-02-01 17:07 | Emergency (ER) | payer OTHER ==
[2019-02-01 17:07] VITALS: BMI 25.4
[2019-02-01 17:28] VITALS: BP 116/73; PULSE 98; RESP 18; TEMP 98.5; O2SAT 98
[2019-02-01] MEDS ORDERED: Amoxicillin-Clav 875-125 mg Tab PO STA (17:56)
--- NOTE | 2019-02-01 17:58 | C.PDOC ---
History Of Present Illness 23 y/o male presents to ED complaining of sinus congestion and sinus headache that started last night. States that he also has greenish nasal discharge and nausea. Patient denies fever, chills, cough, vomiting, abdominal pain, or other complaints. Time Seen by Provider: 02/01/19 17:48 Chief Complaint (Nursing): ENT Problem History Per: Patient History/Exam Limitations: None Onset/Duration Of Symptoms: Days Current Symptoms Are (Timing): Still Present Past Medical History Reviewed: Historical Data, Nursing Documentation, Vital Signs Vital Signs: Last Vital Signs Temp 98.5 F 02/01/19 17:26 Pulse 98 H 02/01/19 17:26 Resp 18 02/01/19 17:26 BP 116/73 02/01/19 17: Pulse Ox 98 02/01/19 17:26 Primary Care Provider: FAMILY PROVIDER,NO - Medical History PMH: Anxiety, Arthritis, Asthma, Back Problems (Herniated and buldging discs), Depression, Fibromyalgia, Migraine, Chronic Pain (Back and Neck) Denies: Diabetes, Hepatitis, HIV, HTN, Chronic Kidney Disease, Seizures, Sexually Transmitted Disease - [facility] Procedures ESOPHAGOGASTRODUODENOSCOPY [EGD] W/CLOSED BIOPSY (02/11/15) Family History: States: No Known Family Hx - Social History Hx Tobacco Use: No Hx Alcohol Use: No Hx Substance Use: No - Immunization History Hx Tetanus Toxoid Vaccination: No Hx Influenza Vaccination: No Hx Pneumococcal Vaccination: No Review Of Systems Except As Marked, All Systems Reviewed And Found Negative. Constitutional: Negative for: Fever, Chills ENT: Positive for: Nose Congestion (with green nasal discharge) Respiratory: Negative for: Cough, Shortness of Breath Gastrointestinal: Positive for: Nausea. Negative for: Vomiting, Abdominal Pain Skin: Negative for: Rash Neurological: Positive for: Headache. Negative for: Dizziness Physical Exam - Physical Exam Appears: Non-toxic, No Acute Distress Skin: Warm, Dry Head: Normacephalic Eye(s): bilateral: Normal Inspection Ear(s): Bilateral: Normal Nose: Other (Congested, tender to percussion of frontal and maxillary sinuses) Oral Mucosa: Moist Throat: Normal, No Erythema, No Exudate Neck: Supple Cardiovascular: Rhythm Regular, No Murmur Respiratory: Normal Breath Sounds, No Rales, No Rhonchi, No Wheezing Gastrointestinal/Abdominal: Soft Extremity: Bilateral: Atraumatic, Normal ROM Neurological/Psych: Oriented x3, Normal Speech ED Course And Treatment O2 Sat by Pulse Oximetry: 98 (RA) Pulse Ox Interpretation: Normal Progress Note: Given augmentin and zofran. Patient will be discharged home and instructed to follow up with PMD for further evaluation. Disposition - Disposition Disposition: HOME/ ROUTINE Disposition Time: 17:56 Condition: STABLE Additional Instructions: Follow up with PMD within 1-2 days. Return to ED if feel worse. Prescriptions: Amoxicillin/Clavulanate [Augmentin 875 MG-125 MG] 1 tab PO BID #14 tab Fluticasone Nasal [Flonase] 1 spr NS BID #1 spr Ondansetron ODT [Zofran ODT] 4 mg PO .Q6-8H PRN #20 odt PRN Reason: Nausea/Vomiting Instructions: Sinusitis, Adult (DC) Forms: [employer] (Georgian) - Clinical Impression Clinical Impression: Sinusitis - PA / SERVICE DESK TEAM LEAD / Resident Statement MD/DO has reviewed & agrees with the documentation as recorded. - Scribe Statement The provider has reviewed the documentation as recorded by the Scribe Mishel Lazo All medical record entries made by the Sharonibpradeep were at my direction and personally dictated by me. I have reviewed the chart and agree that the record accurately reflects my personal performance of the history, physical exam, medical decision making, and the department course for this patient. I have also personally directed, reviewed, and agree with the discharge instructions and disposition.
[2019-02-01] MEDS ORDERED: Amoxicillin-Clav 875-125 mg Tab PO ONE (18:12)
== END 2019-02-01 18:12 | disposition home or self-care (01) ==
LOC: C.ER 17:07
DX: J32.9 Chronic sinusitis, unspecified (principal)